=== PATIENT | female | born 1990 | race American Indian/Alaskan Native ===

== ENCOUNTER 2020-12-08 12:08 | Emergency (ER) | payer SELFPAY ==
[2020-12-08 14:49] VITALS: BP 105/74
[2020-12-08 16:26] LABS: Basophils # (Auto) 0.1 K/mm3 (0.0-0.1); Basophils % (Auto) 1.4 % (0.0-1.8); Hemoglobin 14.5 gm/dl (10.1-14.3); Lymphocytes # (Auto) 0.9 K/mm3 (1.2-5.4); Lymphocytes % (Auto) 16.3 % (13.4-35.0); Mean Corpuscular HGB Conc 32 % (30-34); Mean Corpuscular Volume 88 fl (79-97); Monocytes # (Auto) 0.8 K/mm3 (0.0-0.8); Monocytes % (Auto) 14.9 % (0.0-7.3); Platelet Count 287 K/mm3 (140-440); Red Blood Count 5.12 M/mm3 (3.65-5.03); Red Cell Distribution Width 17.1 % (13.2-15.2)
[2020-12-08 16:54] LABS: Alanine Aminotransferase 7 units/L (7-56); Albumin 4.4 g/dL (3.9-5); BUN/Creatinine Ratio 13; Blood Urea Nitrogen 10 mg/dL (7-17); Calcium 9.2 mg/dL (8.4-10.2); Hemolysis Index 7
[2020-12-08] MEDS ORDERED: SODIUM CHLORIDE 0.9% 1000 ML 1,000 ML IV ONE (18:14)
[2020-12-08] MEDS ORDERED: ONDANSETRON 4 MG/2 ML INJ IV ONE (18:14)
[2020-12-08] MEDS ORDERED: KETOROLAC 30 MG/1 ML INJ IV ONE (18:14)
--- NOTE | 2020-12-08 18:20 | Emergency Department Report ---
ED General Adult HPI - General Chief complaint: Nausea/Vomiting/Diarrhea Stated complaint: FLU SX Time Seen by Provider: 12/08/20 17:58 Source: patient Mode of arrival: Ambulatory Limitations: No Limitations - History of Present Illness Initial comments: 30-year-old female patient with history of recurrent pericarditis presents to the emergency department with complaints of fever, headache, nausea, vomiting, myalgias, pleuritic chest pain, and cough starting yesterday. Patient has experienced approximately 6 episodes of nonbloody emesis in the last 24 hours. No known sick contacts. No current steroid, NSAID, or antibiotic use. No recent travel. Patient has received her COVID-19 vaccination series. Denies wheezing, hemoptysis, abdominal pain, urinary symptoms, rash, neck stiffness, seizure, syncope, lower extremity pain/swelling. Denies all other complaints at this time. - Related Data Allergies Allergy/AdvReac Type Severity Reaction Status Date / Time prochlorperazine Allergy Unknown Verified 12/08/20 14:45 [From Compazine] ED Review of Systems ROS: Stated complaint: FLU SX Other details as noted in HPI Other: GENERAL: Positive for fever. ENT: Negative for ear pain, difficulty hearing, sore throat, nasal congestion, epistaxis. CARDIOVASCULAR: Positive for chest pain. PULMONARY: Negative for cough, dyspnea, wheezing, orthopnea, cyanosis. GASTROINTESTINAL: Positive for nausea and vomiting. MUSCULOSKELETAL: Positive for myalgias. NEUROLOGICAL: Positive for headache. INTEGUMENTARY: Negative for erythema, rash, diaphoresis, laceration, ecchymosis. HEMATOLOGICAL: Negative for hemoptysis, hematemesis, hematochezia, hematuria. PSYCHIATRIC: Negative for hallucinations, suicidal ideation, homicidal ideation, anxiety, depression. ED Past Medical Hx - Past Medical History Previous Medical History?: Yes Hx Asthma: Yes Additional medical history: chronic pericarditis - Surgical History Past Surgical History?: No ED Physical Exam - General Limitations: No Limitations - Other Other exam information: General: Awake and alert. No acute distress. Head: Atraumatic, normocephalic. Eyes: EOMI. Pupils are equal and round. Normal sclera and conjunctiva. ENT: Oral mucosa is moist. Normal pharyngeal exam. Neck: Supple. No lymphadenopathy. Pulmonary: No respiratory distress. Clear to auscultation bilaterally. Left anterior chest pain is reproducible with deep inhalation. Cardiac: Regular rate and rhythm. Pulses are palpable and equal bilaterally. No lower extremity cyanosis or edema. Skin: Warm and dry. No rashes. Abdomen: Soft, non-tender, non-protuberant. No guarding, rigidity, or rebound. Bowel sounds are normal. No organomegaly or masses noted. Back: Normal alignment. No CVA tenderness. Extremities: Symmetrical. Full range of motion intact. Neurological: Alert and oriented, appropriately interactive, no focal deficits. Psych: Cooperative. Appropriate mood and affect. Speech is evenly metered. Thoughts are logically construed. ED Course Vital Signs 12/08/20 14:47 Temperature 98.4 F Pulse Rate 81 Respiratory 18 Rate Blood Pressure 105/74 O2 Sat by Pulse 99 Oximetry ED Medical Decision Making - Lab Data Result diagrams: 12/08/20 15:58 12/08/20 15:58 - Medical Decision Making Differential diagnosis including but not limited to: pericarditis, myocarditis, pneumonia, pleural effusion, influenza, rhabdomyolysis, viral syndrome Patient presents to the emergency department with signs and/or symptoms that arise low risk clinical suspicion for pulmonary embolism. The patient has none of the following clinical criteria: age >50, heart rate >100, room air O2 sa turation <94%, history of DVT/PE, recent trauma/surgery, hemoptysis, exogenous estrogen, or signs/symptoms of DVT. As a result, this patient has very low probability of pulmonary embolism and further testing is not indicated. Patient chose to leave the emergency department AGAINST MEDICAL ADVICE prior to completion of diagnostic work-up. The patient chooses to leave AGAINST MEDICAL ADVICE. The patients ability to make an informed decision has been assessed and it has been determined that the patient has the capacity to comprehend the information about their current medical condition and appreciate the impact of the disease and the consequence of various options for treatment, including forgoing treatment. The patient possesses the ability to evaluate all treatment options, compare the risks and benefits of each option, communicate this choice in a consistent manner over time, and is able to make choices that are not irrational. The patient has been informed about the ideal further testing, treatments, and evaluations that may be indicated during the current emergency department visit as well as any possible alternatives that could be accomplished in a timely manner. The patient is aware of the possible risks of foregoing any or all of these interventions and the patient acknowledges that the decision to leave may result in undesirable consequences such as , permanent disability and/or loss of current lifestyle. Even through leaving AGAINST MEDICAL ADVICE is not ideal, the patient has been instructed to follow any discharge instructions given, take any medications prescribed, and resume care as soon as possible with another provider. Additionally, it has been clearly stated that the patient is welcome to return at any time to continue care at this facility. Critical care attestation.: If time is entered above; I have spent that time in minutes in the direct care of this critically ill patient, excluding procedure time. ED Disposition Clinical Impression: Left against medical advice Disposition: DC-07 LEFT AGAINST MED ADVICE Is pt being admited?: No Condition: Undetermined Forms: AMA Form Time of Disposition: 21:42
--- NOTE | 2020-12-08 18:50 | XRay Report ---
CHEST 2 VIEWS INDICATION / CLINICAL INFORMATION: chest pain; hx pericarditis. COMPARISON: None available. FINDINGS: SUPPORT DEVICES: None. HEART / MEDIASTINUM: No significant abnormality. LUNGS / PLEURA: No significant pulmonary or pleural abnormality. No pneumothorax. ADDITIONAL FINDINGS: No significant additional findings. IMPRESSION: 1. No acute findings. Signer Name: Kelby Isabel DO Signed: 12/08/2020 6:45 PM Workstation Name: [id number]
== END 2020-12-08 21:32 | disposition left against medical advice (07) ==
LOC: ED 12:08
DX: R50.9 Fever, unspecified (principal); R51.9 Headache, unspecified; R11.2 Nausea with vomiting, unspecified; R07.9 Chest pain, unspecified; R05 Cough; J45.909 Unspecified asthma, uncomplicated
CPT/HCPCS: 36415; 71046; 80053; 82550; 83735; 84484; 84703; 85025; 85652; 86140; 96361; 96374; 96375; 99284; J1885; J2405; J7030